=== PATIENT | male | born 1950 | race Two or more races ===

== ENCOUNTER 2021-03-30 19:23 | Inpatient (IN) | payer OTHER ==
[~2021-03-30] VITALS: Ht 180.3 cm; Wt 81.6 kg
[2021-04-01] MEDS ORDERED: CALQUENCE100 MG (09:41)
== END 2021-04-10 18:35 | disposition home or self-care (01) | DRG 177 ==
LOC: ER 19:23 → MEDJ 03-31 09:50 → SEC-K 03-31 09:50 → MEDJ 03-31 12:55
PROVIDERS: ADMIT Internal Medicine; ATTEND Internal Medicine
PROC: 4A12X4Z Monitoring of Cardiac Electrical Activity, External Approach (ICD-10-PCS; 2021-04-01)
PROC: XW033E5 Introduction of Remdesivir Anti-infective into Peripheral Vein, Percutaneous Approach, New Technology Group 5 (ICD-10-PCS; principal; 2021-04-02)
PROC: 3E0F7SF Introduction of Other Gas into Respiratory Tract, Via Natural or Artificial Opening (ICD-10-PCS; 2021-04-02)
PROC: B54DZZZ Ultrasonography of Bilateral Lower Extremity Veins (ICD-10-PCS; 2021-04-05)
PROC: BW24YZZ Computerized Tomography (CT Scan) of Chest and Abdomen using Other Contrast (ICD-10-PCS; 2021-04-08)
DX: U07.1 COVID-19 (principal); J12.82 Pneumonia due to coronavirus disease 2019; C91.10 Chronic lymphocytic leukemia of B-cell type not having achieved remission; R09.02 Hypoxemia; R53.81 Other malaise

== ENCOUNTER → 2021-05-04 | Emergency (ER) | payer OTHER ==
[~2021-05-04] VITALS: Ht 180.3 cm; Wt 81.6 kg
[~2021-05-04] MED LIST: CALQUENCE100 MG
== END | disposition home or self-care (01) ==
LOC: ER 19:18
DX: M25.512 Pain in left shoulder (principal); Z99.81 Dependence on supplemental oxygen; J18.9 Pneumonia, unspecified organism; U09.9 Post COVID-19 condition, unspecified